=== PATIENT | female | born 1960 | race Caucasian/White ===

== ENCOUNTER 2021-09-28 09:44 | Emergency (ER) | payer OTHER, MEDICAID, SELFPAY ==
[2021-09-28 10:42] VITALS: BP 151/81; PULSE 85; RESP 20; TEMP 36.9; O2SAT 97; BMI 20.5
--- NOTE | 2021-09-28 10:52 | DI.CT.S_ITS ---
PROCEDURE: CT HEAD/BRAIN WO CON INDICATIONS: fall TECHNIQUE: Noncontrast 4.5 mm thick angled axial sections acquired from the foramen magnum to the vertex, with coronal and sagittal reformats. For radiation dose reduction, the following was used: automated exposure control, adjustment of mA and/or kV according to patient size. COMPARISON: None. FINDINGS: Image quality: Excellent. CSF spaces: Basal cisterns are patent. No extra-axial fluid collections. Ventricles are normal in size and shape. Brain: No midline shift. No intracranial masses or hemorrhage. Bahena-white matter interface is normal. Skull and face: Calvarium and visualized facial bones are intact, without suspicious lesions. Sinuses: Visualized sinuses and mastoids are clear. IMPRESSION: 1. No acute intracranial abnormalities. Dictated by: Nils Hernandez M.D. on 09/28/2021 at 11:15 Approved by: Nils Hernandez M.D. on 09/28/2021 at 11:16
[2021-09-28] MEDS: ACETAMINOPHEN 325 MG TABLET 975 MG PO (12:30)
--- NOTE | 2021-09-28 13:39 | ED.HEATRA ---
HPI - Head Injury <Shahzad Peoples PA-C - Last Filed: 09/28/21 20:17> General Chief complaint: Head Injury Stated complaint: Fell and hit head- feeling dizzy Time Seen by Provider: 09/28/21 13:03 Source: patient and family Mode of arrival: Ambulatory History of Present Illness HPI Narrative: Patient is a 61-year-old female who presents to the emergency department today for evaluation of closed head injury. Patient explains she was on the [place] earlier today when she tripped over a rope falling on her right side. She states that she hit her head on the ground and has been experiencing gradually improving right-sided facial numbness and right-sided blurry vision since that time. Of note, patient denies losing consciousness as a result of the fall and states she does not take blood thinners. She denies fever, chills, chest pain, cough, shortness of breath, nausea, vomiting, diarrhea, constipation, abdominal pain, dysuria, hematuria, or any other concerning symptoms. No further concerns were voiced at this time. Related Data Allergies Allergy/AdvReac Type Severity Reaction Status Date / Time No Known Drug Allergies Allergy Verified 09/28/21 10:42 Review of Systems <Shahzad Peoples PA-C - Last Filed: 09/28/21 20:17> Constitutional Constitutional: Denies chills, Denies fatigue, Denies fever(s), Denies frequent falls, Reports headache(s), Denies lethargy and Denies weakness Eyes Eyes: Reports blurry vision, Denies change in vision, Denies eye discharge, Denies irritation and Denies loss of vision ENT Ears, Nose, Mouth, and Throat: Reports headache(s) and Denies neck pain Cardiovascular Cardiovascular: Denies chest pain, Denies irregular heart rhythm, Denies lightheadedness, Denies palpitations, Denies dyspnea, Denies dyspnea on exertion and Denies orthopnea Respiratory Respiratory: Denies dyspnea and Denies dyspnea on exertion Gastrointestinal Gastrointestinal: Denies abdominal pain, Denies change in bowel habits, Denies diarrhea, Denies nausea and Denies vomiting Genitourinary Genitourinary: Denies hematuria, Denies flank pain, Denies urinary incontinence and Denies urinary urgency Musculoskeletal Musculoskeletal: Denies back pain, Denies muscle weakness, Denies neck pain, Denies numbness and Denies tingling Integumentary/Breasts Skin/Breast: Denies pruritus, Denies erythema, Denies rash and Denies wounds Neurologic Neurologic: Denies frequent falls, Reports headache(s), Denies loss of vision, Denies numbness, Denies tingling, Denies weakness and Reports other (Head injury) Endocrine Endocrine: Denies fatigue and Denies palpitations Patient History <Shahzad Peoples PA-C - Last Filed: 09/28/21 20:17> Social History Smoking Status: Never smoker Smoking Status: Never smoker alcohol intake frequency: a few times a week Substance Use Type: does not use Exam <Shahzad Peoples PA-C - Last Filed: 09/28/21 20:17> Narrative Exam Narrative: GENERAL: 61 year old patient appears stated age. Well-developed patient, in no acute distress. HEAD: Atraumatic. Normocephalic. EYES: Pupils equal round and reactive. Extraocular motions intact. No scleral icterus. No injection or drainage. ENT: Nose without bleeding, purulent drainage. Throat without erythema, tonsillar hypertrophy or exudate. Airway patent. NECK: Trachea midline. Non tender CARDIOVASCULAR: Regular rate and rhythm without murmurs, gallops, or rubs. RESPIRATORY: Clear to auscultation. Breath sounds equal bilaterally. No wheezes, rales, or rhonchi. GASTROINTESTINAL: Abdomen soft, non-tender, nondistended. EXTREMITIES: No edema or joint tenderness. BACK: Nontender without deformity or crepitance. No flank tenderness. NEURO: AOx3. Answering questions appropriately moving all extremities through a full range of motion. Cranial nerves 2 through 12 grossly intact. SKIN: No rash or erythema of visible areas Initial Vital Signs Initial Vital Signs: Vital Signs Temperature 98.4 F 09/28/21 10:42 Pulse Rate 85 09/28/21 10:42 Respiratory Rate 20 09/28/21 10:42 Blood Pressure 151/81 H 09/28/21 10:42 Pulse Oximetry 97 09/28/21 10:42 Oxygen Delivery Method 09/28/21 10:42 <Flory Romero DO - Last Filed: 10/04/21 12:49> Initial Vital Signs Initial Vital Signs: Vital Signs Temperature 98.4 F 09/28/21 10:42 Pulse Rate 85 09/28/21 10:42 Respiratory Rate 20 09/28/21 10:42 Blood Pressure 151/81 H 09/28/21 10:42 Pulse Oximetry 97 09/28/21 10:42 Oxygen Delivery Method 09/28/21 10:42 Course <Shahzad Peoples PA-C - Last Filed: 09/28/21 20:17> Course Course Narrative: CT of the head obtained. Tylenol administered. CT of the head did not show signs of acute abnormality. Patient states she would like to go home. Orders Ordered: Discontinued Medications Acetaminophen (Acetaminophen 325 Mg Tablet) 975 mg PO NOW ONE Stop: 09/28/21 12:21 Last Admin: 09/28/21 12:30 Dose: 975 mg Documented By: PO Vital Signs Vital signs: Vital Signs - 8 hr 09/28/21 13:50 Pulse Rate 79 Respiratory Rate 18 Blood Pressure 149/81 H Pulse Oximetry 98 Oxygen Delivery Method Room Air <Flory Romero DO - Last Filed: 10/04/21 12:49> Orders Ordered: Discontinued Medications Acetaminophen (Acetaminophen 325 Mg Tablet) 975 mg PO NOW ONE Stop: 09/28/21 12:21 Last Admin: 09/28/21 12:30 Dose: 975 mg Documented By: PO Vital Signs Vital signs: Vital Signs - 8 hr 09/28/21 13:50 Pulse Rate 79 Respiratory Rate 18 Blood Pressure 149/81 H Pulse Oximetry 98 Oxygen Delivery Method Room Air MDM - Head Injury <Shahzad Peoples PA-C - Last Filed: 09/28/21 20:17> Imaging Data CT scan - head: Radiologist's Impression: PROCEDURE:? CT HEAD/BRAIN WO CON ? INDICATIONS:? fall ? TECHNIQUE:? Noncontrast 4.5 mm thick angled axial sections acquired from the foramen magnum to the vertex, with coronal and sagittal reformats.? For radiation dose reduction, the following was used:? automated exposure control, adjustment of mA and/or kV according to patient size.? ? COMPARISON:? None. ? FINDINGS:? Image quality:? Excellent.? ? CSF spaces:? Basal cisterns are patent.? No extra-axial fluid collections.? Ventricles are normal in size and shape.? ? Brain:? No midline shift.? No intracranial masses or hemorrhage.? Bahena-white matter interface is normal.? ? Skull and face:? Calvarium and visualized facial bones are intact, without suspicious lesions.? ? Sinuses:? Visualized sinuses and mastoids are clear.? ? IMPRESSION:? ? 1. No acute intracranial abnormalities. ? ? Dictated by: Nils Hernandez M.D. on 09/28/2021 at 11:15 ? ? Approved by: Nils Hernandez M.D. on 09/28/2021 at 11:16 ? MDM Narrative Medical decision making narrative: Differential diagnosis to consider but not limited to closed head injury versus skull fracture versus epidural hematoma versus subdural hematoma versus concussion. I discussed results of CT with patient and informed that no acute abnormality was identified. Patient states she is feeling better and feels her blurry vision has improved significantly since arriving to the emergency department. Additionally, she states that she feels her nausea has improved. I urged the patient to follow-up with primary care for further evaluation and management. I also instructed the patient's to monitor the patient's behavior and ensure that there is no significant abnormality. They both expressed understanding and agreed to plan. Very strict return precautions were discussed with the patient and her prior to discharge. Discharge Plan Departure Patient Disposition: Home Clinical Impression: Closed head injury Instructions: DI for Closed Head Injury Activity Restrictions/Additional Instructions: *You have been diagnosed with closed head injury *What to do: *Please continue to take your regular medications as directed. [ ] New medication prescriptions sent to your pharmacy: [ ] [ ] New medication written as a paper prescription [X] No new medications given You were evaluated in the emergency department today for a closed head injury. CT imaging obtained in the emergency department today did not show signs of acute abnormalities such as fracture or bleed. I recommend taking it easy for the next couple of days and avoiding any strenuous physical activity. Please continue using Tylenol and ibuprofen as needed for pain management. It is important to reach out to your primary care provider for follow-up within the next week or so. Please do not hesitate to return to the emergency department if you experience worsening pain, further changes in your vision, persistent vomiting, behavior abnormalities, extreme confusion, loss of consciousness, or any other concerning symptoms. *Please follow up with your primary care provider in 2-3 days, call for an appointment. Let them know you were seen in the Emergency Department and that we ask that you be seen in follow up. We will electronically transmit a record of today's note if your PCP is in our system *If you do not have a primary care provider please contact the [facility] Resource line at [phone]. They will ask some questions about your medical history and help get you set up with a doctor in the community. *Return to Emergency Department if you should have any new, worsening or concerning symptoms, such as fever greater than 101 F, shaking chills, worsening pain, persistent vomiting or other bothersome symptoms. Visit Report Forms: Patient Portal/API <Flory Romero DO - Last Filed: 10/04/21 12:49> Cosign ED Attending Cosmichelature Attestation: I was immediately available in the department for consultation. Documentation has been reviewed.
[2021-09-28 13:50] VITALS: BP 149/81; PULSE 79; RESP 18; O2SAT 98
== END 2021-09-28 13:50 | disposition home or self-care (01) ==
PROVIDERS: Emergency Provider Physician Assistant
DX: S09.90XA Unspecified injury of head, initial encounter (principal); W01.0XXA Fall on same level from slipping, tripping and stumbling without subsequent striking against object, initial encounter
CPT/HCPCS: 70450; 99283; 99284